=== PATIENT | female | born 1955 ===

== ENCOUNTER 2018-07-15 06:00 | Day surgery (SDC) | payer OTHER | END 2018-07-15 10:30 | disposition home or self-care (01) | LOC: AMB-ENDOS 06:00 | DX: D12.0 Benign neoplasm of cecum (principal) ==

== ENCOUNTER 2020-10-24 06:57 | Inpatient (IN) | payer OTHER ==
[~2020-10-24] VITALS: Ht 170.2 cm; Wt 76.7 kg
[2020-10-24] MEDS ORDERED: AMITRIPTYLINE H10 MG (07:16)
[2020-10-24] MEDS ORDERED: PEPCID AC20 MG (07:16)
[2020-10-24] MEDS ORDERED: GEODON20 MG (07:16)
[2020-10-24] MEDS ORDERED: ZESTRIL10 M1 (07:16)
[2020-10-24] MEDS ORDERED: CLONAZEPAM0.5 M1 (07:16)
[2020-10-24] MEDS ORDERED: LEVO-T75 MCG (07:16)
[2020-10-24] MEDS ORDERED: ATORVASTATIN CA10 MG (16:39)
== END 2020-10-25 14:32 | disposition home or self-care (01) | DRG 395 ==
LOC: ER 06:57 → SURH 09:29
PROVIDERS: ADMIT Surgery; ATTEND Surgery
PROC: 0DJD8ZZ Inspection of Lower Intestinal Tract, Via Natural or Artificial Opening Endoscopic (ICD-10-PCS; principal; 2020-10-25)
DX: D12.0 Benign neoplasm of cecum (principal); D12.4 Benign neoplasm of descending colon; K52.9 Noninfective gastroenteritis and colitis, unspecified; R11.2 Nausea with vomiting, unspecified; K57.90 Diverticulosis of intestine, part unspecified, without perforation or abscess without bleeding; I10 Essential (primary) hypertension; Z20.822 Contact with and (suspected) exposure to COVID-19